=== PATIENT | female | born 1945 | race Caucasian/White ===

== ENCOUNTER 2016-05-16 10:44 | Emergency (ER) | payer OTHER, BC ==
[2016-05-16 10:57] VITALS: RESP 16; TEMP 97.7; O2SAT 96
[2016-05-16 12:29] VITALS: BP 142/89; PULSE 77
--- NOTE | 2016-05-16 12:37 | EDPHY ---
H & P Stated Complaint: UNABLE TO CARE FOR SELF Time Seen by Provider: 05/16/16 11:33 HPI/ROS: CHIEF COMPLAINT: Concerns over ability to care for self HISTORY OF PRESENT ILLNESS: 70-year-old female arrives via police on an M1 hold. Patient has a history of dementia, is cared for by her who is also in the emergency department for a transient episode of altered mental status and hypoglycemia. No reports of trauma or fall. Patient has no complaints of pain or discomfort. REVIEW OF SYSTEMS: A ten point review of systems was performed and is negative with the exception of the items mentioned in the HPI PAST MEDICAL & SURGICAL HISTORY: No pertinent medical or surgical history SOCIAL HISTORY:lives with her PHYSICAL EXAM (Prior to examination, patient consented to physical exam, hands were washed and my usual and customary physical exam procedures followed) 1) GENERAL: Well-developed, well-nourished, alert . Appears to be in no acute distress. 2) HEAD: Normocephalic, atraumatic 3) HEENT: Pupils equal, round, reactive to light bilaterally. Sclera anicteric. 4) NECK: Full range of motion, no meningeal signs. 5) LUNGS: Clear auscultation bilaterally, no wheezes, no rhonchi, no retractions. 6) HEART: Regular rate and rhythm, no murmur, no heave, no gallop. 7) ABDOMEN: No guarding, no rebound, no focal tenderness,, 8) MUSCULOSKELETAL: No peripheral edema or discoloration. 9) BACK: No CVA tenderness 10) SKIN: No rash, no petechiae. DIFFERENTIAL DIAGNOSIS: in no particular include but limited to dementia, encephalopathy, trauma - Personal History Current Tetanus/Diphtheria Vaccine: Yes Current Tetanus Diphtheria and Acellular Pertussis (TDAP): Yes Tetanus Vaccine Date: less than 10 years - Medical/Surgical History Hx Asthma: No Hx Chronic Respiratory Disease: No Hx Diabetes: No Hx Cardiac Disease: No Hx Renal Disease: No Hx Cirrhosis: No Hx Alcoholism: No Hx HIV/AIDS: No Hx Splenectomy or Spleen Trauma: No Other PMH: medical none. surgery appendectomy, tubal ligation. alzheimers - Social History Smoking Status: Never smoked Constitutional: Initial Vital Signs Temperature (C) 36.5 C 03/27/17 10:55 Heart Rate 85 05/16/16 10:55 Respiratory Rate 16 05/16/16 10:55 Blood Pressure 151/98 H 05/16/16 10:55 O2 Sat (%) 96 05/16/16 10:55 O2 Delivery Mode Room Air Allergies/Adverse Reactions: No Known Allergies Allergy (Unverified 05/16/16 10:57) Home Medications: Medication Instructions Recorded Aspirin [Aspirin 325 mg] 325 mg PO DAILY 06/29/10 Amoxicillin/Clavulanate Pot 875 mg PO BID #9 tab 01/01/16 [Augmentin 875 MG TAB (RX)] Donepezil HCl 01/01/16 Memantine HCl 01/01/16 Departure - Departure Disposition: Home, Routine, Self-Care Clinical Impression: Alzheimer's dementia Qualifiers: Alzheimer's disease onset: unspecified onset Dementia behavioral disturbance: without behavioral disturbance Qualified Code(s): G30.9 - Alzheimer's disease, unspecified Condition: Good Instructions: Dementia (ED) Referrals: Jose Troncoso MD [Medical Doctor] - 2-3 days, call for appt.
== END 2016-05-16 13:10 | disposition home or self-care (01) ==
LOC: EDUNIT#
DX: G30.9 Alzheimer's disease, unspecified (principal); Z79.82 Long term (current) use of aspirin

== ENCOUNTER 2017-06-08 17:07 | Inpatient (IN) | payer OTHER, BC ==
--- NOTE | 2017-06-08 17:34 | EDPHY ---
HPI/HX/ROS/PE/MDM Narrative: CHIEF COMPLAINT: Altered mental status, has dementia HISTORY OF PRESENT ILLNESS: The patient is a 71 y/o female with a history of dementia presenting with her daughter after her daughter noticed right eye drooping. On Monday, 5 days ago, she began to have intermittent vomiting. Per her daughter, the patient was also leaning towards her right side while walking and was more weak than normal while walking. Her daughter was concerned about the weakness so she decided to present to the emergency department. Denies history of UTI. Daughter denies that the patient has reported chest pain and no obvious shortness of breath witnessed. Patient has not had a cough or runny nose. No history of fever. REVIEW OF SYSTEMS: Unable to obtain due to patient's dementia. Daughter reports vomiting but denies fever. PAST MEDICAL HISTORY: Dementia SOCIAL HISTORY: Daughter at bedside, lives in [place] with her VITAL SIGNS Reviewed by me. GENERAL: Uncomfortable in bed, reports pain on the right side with any touching or movements. No deformities noted. Well-developed, well-nourished. HEENT: Atraumatic. Eyes: Slight ptosis on the right. PERRL, EOMI, no nystagmus. No icterus. No injection. Mouth: moist mucous membranes. No erythema or lesions. Neck: No meningitis. Nontender to palpation. No adenopathy. No meningismus. LUNGS: Clear to auscultation bilaterally, no wheezes, rhonchi or rales. CARDIAC: Regular rate and rhythm, no rubs, murmurs or gallops. ABDOMEN: Soft, nontender, nondistended, bowel sounds normal. BACK: Mild left CVA tenderness. EXTREMITIES: No trauma. No pedal edema. Range of motion is normal throughout. NEURO: Right eyelid with slight ptosis, mild asymmetry of the mouth the right corner of somewhat lower. Alert, oriented times 0. Cranial nerves appear grossly intact. Unable to assess strength secondary to the patient's confusion. SKIN: Warm and dry, no rash. PSYCHIATRIC: Normal mentation, no agitation. Portions of this note were transcribed by a pesticide use medical coordinator. I personally performed a history, physical exam, medical decision making, and confirmed accuracy of information the transcribed note. ED Course: The patient is a 71 y/o female with a history of dementia presenting with her daughter after her daughter noticed right eye drooping and general right-sided pain and weakness today. On exam the patient has diffuse right-sided pain without any visible trauma. She also has right eyelid and mild right corner of her mouth droopiness. She does have full ROM of her extremities. EKG, chest x- ray, head CT, and labs ordered. 1814: Spoke with radiologist, he reports that the patient's head CT is negative. 1845: 12-LEAD EKG: Please see the full report in [facility]. My interpretation: Normal sinus rhythm with a rate of 94 1855: Patient's nurse reports that the patient tries to not bear weight on her right leg. Right upper and lower extremity plain films ordered to evaluate for occult fracture. 1909: Patient's labs reveal elevated lipase. Liver function tests are largely unremarkable. Abdominopelvic CT ordered to evaluate for pancreatitis. 1947: I reviewed patient's extremity x-rays; there are no acute osseous findings. She will need to be admitted for pancreatitis. 2014: Spoke with Dr. Ann, radiologist, regarding patient's AP CT. There is a possible right pulmonary embolism and simple pancreatitis. D-dimer ordered. Dr. Ann recommends further evaluation for this potential right pulmonary embolism visualized on the CT scan performed with contrast. As the patient has just received IV contrast we will proceed with bilateral lower extremity ultrasounds. D-dimer also ordered. This is 7.9. 2035: Consulted with hospitalist service, Dr. Sanchez accepts admission of this patient for pancreatitis, vomiting, dehydration, altered mental status, and to further evaluate for potential venous thromboembolic disease. MDM: After the history was obtained and physical exam performed, the following differential for the patient's altered mental status and vomiting and weakness was considered included but was not limited to hypoglycemia, electrolyte disturbances, anemia, intracranial abnormalities, drug or alcohol intoxication, infection, stroke, or TIA. - Data Points Imaging Results: Imaging Impressions Chest X-Ray 06/08/17 17:38 Impression: 1. Shallow inspiration exaggerates lung markings. Bibasilar opacities, atelectasis versus pneumonia; clinical correlation recommended. 2. Peribronchial thickening suggests airways disease. 3. See above report for additional findings. Head CT 06/08/17 17:38 Impression: 1. No acute intracranial findings. If symptoms persist and clinical suspicion warrants, consider MRI. 2. Diffuse cerebral atrophy with periventricular and subcortical low attenuation consistent with chronic microvascular ischemic gliosis. Findings discussed with genet Wall for Kell Szymanski MD 06/08/2017 at 18: 14. Forearm X-Ray 06/08/17 18:56 Impression: Nothing acute identified. 2. Right Humerus, 2 views History: Pain, altered mental status. Dementia. Findings: No fracture or malalignment is identified. Mineralization is normal. Impression: Negative. Hip X-Ray 06/08/17 18:56 Impression: Negative 2. Right Knee, 2 views History: Pain Findings: There is mild hyperextension of the knee joint. There is a tiny amount of fluid in the suprapatellar knee joint. No fracture, arthritis or dislocation is identified. Mineralization is normal. Impression: Mild hyperextension. Otherwise negative. 3. Right Tibia-Fibula, 2 views History: Pain Findings: No fracture is identified. Mineralization is normal. Alignment is anatomic. Incidentally noted is a large plantar calcaneal spur. Impression: Nothing acute identified. Humerus X-Ray 06/08/17 18:56 Impression: Nothing acute identified. 2. Right Humerus, 2 views History: Pain, altered mental status. Dementia. Findings: No fracture or malalignment is identified. Mineralization is normal. Impression: Negative. Tibia/Fibula X-Ray 06/08/17 18:56 Impression: Negative 2. Right Knee, 2 views History: Pain Findings: There is mild hyperextension of the knee joint. There is a tiny amount of fluid in the suprapatellar knee joint. No fracture, arthritis or dislocation is identified. Mineralization is normal. Impression: Mild hyperextension. Otherwise negative. 3. Right Tibia-Fibula, 2 views History: Pain Findings: No fracture is identified. Mineralization is normal. Alignment is anatomic. Incidentally noted is a large plantar calcaneal spur. Impression: Nothing acute identified. Abdomen CT 06/08/17 19:10 Impression: 1.Suspicious for right pulmonary embolism. 2. Simple pancreatitis of the tail. Results called to Dr. Szymanski at 8:15 PM. General information for patients regarding this examination can be found at [email or web address]. If you have questions or comments about this report, please contact me at [phone] (hospital) or [phone] (cell). Imaging: Discussed imaging studies w/ house calls nurse Radiologist, I viewed and interpreted images myself Laboratory Results: Laboratory Results 06/08/17 18:13 06/08/17 18:13 06/08/17 06/08/17 06/08/17 18:15 18:13 18:13 WBC RBC Hgb Hct MCV MCH MCHC RDW Plt Count MPV Neut % (Auto) Lymph % (Auto) [place] % (Auto) Eos % (Auto) Baso % (Auto) Nucleat RBC Rel Count Absolute Neuts (auto) Absolute Lymphs (auto) Absolute Monos (auto) Absolute Eos (auto) Absolute Basos (auto) Absolute Nucleated RBC Immature Gran % Immature Gran # PT INR D-Dimer 7.90 ug/mLFEU H ug/mLFEU (0.00-0.50) Sodium 139 mEq/L mEq/L (135-145) Potassium 4.5 mEq/L mEq/L (3.5-5.2) Chloride 101 mEq/L mEq/L (97-110) Carbon Dioxide 25 mEq/l mEq/l (22-31) Anion Gap 13 mEq/L mEq/L (8-16) BUN 13 mg/dL mg/dL (7-23) Creatinine 0.8 mg/dL mg/dL (0.6-1.0) Estimated GFR > 60 Glucose 124 mg/dL H mg/dL (70-100) Calcium 9.0 mg/dL mg/dL (8.5-10.4) Total Bilirubin 0.4 mg/dL mg/dL (0.1-1.4) Conjugated Bilirubin 0.2 mg/dL mg/dL (0.0-0.5) Unconjugated Bilirubin 0.2 mg/dL mg/dL (0.0-1.1) AST 42 IU/L IU/L (14-46) ALT 34 IU/L IU/L (9-52) Alkaline Phosphatase 113 IU/L IU/L (38-126) Troponin I < 0.012 ng/mL ng/mL (0.000-0.034) Total Protein 7.8 g/dL g/dL (6.3-8.2) Albumin 4.1 g/dL g/dL (3.5-5.0) Lipase 592 IU/L H IU/L (23-300) Urine Color Urine Appearance Urine pH Ur Specific [place] Urine Protein Urine Ketones Urine Blood Urine Nitrate Urine Bilirubin Urine Urobilinogen Ur Leukocyte Esterase Urine RBC Urine WBC Ur Epithelial Cells Urine Mucus Urine Glucose 06/08/17 06/08/17 06/08/17 18:13 18:13 17:45 WBC 12.51 10^3/uL H 10^3/uL (3.80-9.50) RBC 4.42 10^6/uL 10^6/uL (4.18-5.33) Hgb 13.2 g/dL g/dL (12.6-16.3) Hct 39.4 % % (38.0-47.0) MCV 89.1 fL fL (81.5-99.8) MCH 29.9 pg pg (27.9-34.1) MCHC 33.5 g/dL g/dL (32.4-36.7) RDW 13.0 % % (11.5-15.2) Plt Count 261 10^3/uL 10^3/uL (150-400) MPV 10.0 fL fL (8.7-11.7) Neut % (Auto) 77.3 % H % (39.3-74.2) Lymph % (Auto) 10.3 % L % (15.0-45.0) [place] % (Auto) 9.4 % % (4.5-13.0) Eos % (Auto) 2.0 % % (0.6-7.6) Baso % (Auto) 0.5 % % (0.3-1.7) Nucleat RBC Rel Count 0.0 % % (0.0-0.2) Absolute Neuts (auto) 9.67 10^3/uL H 10^3/uL (1.70-6.50) Absolute Lymphs (auto) 1.29 10^3/uL 10^3/uL (1.00-3.00) Absolute Monos (auto) 1.18 10^3/uL H 10^3/uL (0.30-0.80) Absolute Eos (auto) 0.25 10^3/uL 10^3/uL (0.03-0.40) Absolute Basos (auto) 0.06 10^3/uL 10^3/uL (0.02-0.10) Absolute Nucleated RBC 0.00 10^3/uL 10^3/uL (0-0.01) Immature Gran % 0.5 % % (0.0-1.1) Immature Gran # 0.06 10^3/uL 10^3/uL (0.00-0.10) PT 14.1 SEC SEC (12.0-15.0) INR 1.07 (0.83-1.16) D-Dimer Sodium Potassium Chloride Carbon Dioxide Anion Gap BUN Creatinine Estimated GFR Glucose Calcium Total Bilirubin Conjugated Bilirubin Unconjugated Bilirubin AST ALT Alkaline Phosphatase Troponin I Total Protein Albumin Lipase Urine Color YELLOW Urine Appearance CLEAR Urine pH 5.0 (5.0-7.5) Ur Specific [place] 1.030 (1.002-1.030) Urine Protein 1+ H (NEGATIVE) Urine Ketones NEGATIVE (NEGATIVE) Urine Blood 1+ H (NEGATIVE) Urine Nitrate NEGATIVE (NEGATIVE) Urine Bilirubin NEGATIVE (NEGATIVE) Urine Urobilinogen 2.0 EU H EU (0.2-1.0) Ur Leukocyte Esterase NEGATIVE (NEGATIVE) Urine RBC 1-3 /hpf /hpf (0-3) Urine WBC 5-10 /hpf H /hpf (0-3) Ur Epithelial Cells TRACE /lpf /lpf (NONE-1+) Urine Mucus 3+ /lpf H /lpf (NONE-1+) Urine Glucose NEGATIVE (NEGATIVE) General Time Seen by Provider: 06/08/17 17:10 Initial Vital Signs: Initial Vital Signs Temperature (C) 37.1 C 06/08/17 17:07 Heart Rate 95 06/08/17 17:07 Respiratory Rate 16 06/08/17 17:07 Blood Pressure 131/73 H 06/08/17 17:07 O2 Sat (%) 91 L 06/08/17 17:07 O2 Delivery Mode Room Air Allergies/Adverse Reactions: No Known Allergies Allergy (Unverified 05/16/16 10:57) Home Medications: Medication Instructions Recorded Donepezil HCl 10 mg PO DAILY 06/08/17 Memantine HCl 10 mg PO BID 06/08/17 Departure - Departure Disposition: [facility] Inpatient Acute Clinical Impression: Confusion, possible venous thromboembolic disease Pancreatitis Qualifiers: Chronicity: acute Pancreatitis type: unspecified pancreatitis type Acute pancreatitis complication: unspecified Qualified Code(s): K85.90 - Acute pancreatitis without necrosis or infection, unspecified Condition: Fair Report Scribed for: Kell Szymanski Report Scribed by: Mae Figueredo Date of Report: 06/08/17 Time of Report: 18:00
[2017-06-08 18:19] LABS: PLATELET COUNT 261 10^3/uL (150-400)
[2017-06-08 18:27] LABS: INR 1.07 (0.83-1.16); PROTIME(PATIENT) 14.1 SEC (12.0-15.0)
--- NOTE | 2017-06-08 18:48 | CPEKG ---
Heart Rate: 94 RR Interval: 638 P-R Interval: 128 QRSD Interval: 82 QT Interval: 344 QTC Interval: 431 P [place]: 36 QRS [place]: 15 T Wave [place]: 43 EKG Severity - NORMAL ECG - EKG Impression: SINUS RHYTHM Electronically Signed By: Kell Szymanski 08-Jun-2017 21:38:10
[2017-06-08] MEDS ORDERED: IOPAMIDOL (ISOVUE-300) 100 ML BTL ONE (19:35)
[2017-06-08] MEDS ORDERED: ONDANSETRON 4 MG/2 ML VIAL IVP PRN (22:18)
[2017-06-08] MEDS ORDERED: NS 1,000 ML IV SCH (22:30)
[2017-06-08] MEDS ORDERED: ENOXAPARIN 60 MG/0.6 ML SYR SC SCH (23:00)
[2017-06-08] MEDS ORDERED: HEPARIN 10,000 UNIT/10 ML MDV (1,000 UNIT/ML) IVP ONE (23:09)
[2017-06-08] MEDS ORDERED: HEPARIN 10,000 UNIT/10 ML MDV (1,000 UNIT/ML) IVP PRN (23:09)
[2017-06-08] MEDS ORDERED: HEPARIN/DEXTROSE 500 ML IV SCH (23:15)
[2017-06-08 23:43] LABS: PLATELET COUNT 233 10^3/uL (150-400)
[2017-06-08 23:51] LABS: INR 1.09 (0.83-1.16); PROTIME(PATIENT) 14.3 SEC (12.0-15.0)
[2017-06-09] MEDS: ACETAMINOPHEN 325 MG TAB PO PRN ×2 (01:31→15:55)
[2017-06-09] MEDS ORDERED: NS 500 ML IV ONE (01:52)
[2017-06-09 03:04] LABS: PLATELET COUNT 245 10^3/uL (150-400)
--- NOTE | 2017-06-09 03:13 | PDGENHP ---
History and Physical - Chief Complaint Acute on chronic confusion, shortness, nausea - History of Present Illness Source- patient is able to answer a few review of system questions but overall is a poor historian due to her dementia and acute confusion. Patient's daughter is at bedside and provides the history. Case was discussed with accepting hospitalist and discussed with ER provider. HPI - this is a 71-year-old female with the past medical history significant for progressive dementia who is otherwise healthy presents emergency department today with her daughter with acute confusion from her baseline. Patient also with some complaints of nausea has had a nonproductive cough is overall appears to be acutely ill. Patient without any known recent illnesses. She was recently removed off of Haldol in the last several weeks 2/2 increased sedation and no significant improvement in mood or behavior. Daughter reports that in the past 1-2 weeks patient has been particularly less mobile in the more sedentary lying in bed quite a bed. She has noticed that her mother appears to be quite fatigued and has bilateral symmetric overall facial drooping without any slurred speech or focal deficits. Today patient was noted to be acutely confused from her baseline which patient is normally oriented to person and her daughter has been but not always to place. Additionally patient's caregiver was concerned that patient was having some unsteady gait. Patient had been leaning more towards the right secondary to complaints of right lower leg pain. Daughter also noticed that patient's right lower leg and calf appear to be slightly more prominent than the left. Patient denies any chest pain. Positive shortness of breath. History Information - Allergies/Home Medication List Allergies/Adverse Reactions: No Known Allergies Allergy (Unverified 05/16/16 10:57) Home Medications: Donepezil HCl 10 mg PO DAILY 06/08/17 [Last Taken 06/08/17] Memantine HCl 10 mg PO BID 06/08/17 [Last Taken 06/08/17 08:00] I have personally reviewed and updated: family history, medical history, social history, surgical history - Past Medical History Additional medical history: Dementia - Surgical History Additional surgical history: Cholecystectomy, appendectomy, hysterectomy. - Family History Additional family history: Mother and father due to CA at advanced age. - Social History Smoking Status: Never smoked Alcohol Use: None Drug Use: None Additional social history: Patient is and lives with her at home. She has 24 hr caregivers available in the home. Daughter is MD MARTINEZ in quite supportive of but travels for school [id number]. Cor status-full. Review of Systems Review of Systems: ROS: 10pt was reviewed & negative except for what was stated in HPI & below Constitutional: Reports: weakness (Generalized). Denies: chills, fever, recent illness EENMT: Denies: blurred vision, nose congestion, sore throat Cardiac: Denies: chest pain, edema, lightheadedness, palpitations, syncope Respiratory: Reports: cough (Nonproductive), shortness of breath (With exertion) Gastrointestinal: Reports: nausea. Denies: vomitting, abdominal pain, diarrhea Genitourinary: Denies: dysuria, hematuria Muscolosketal: Denies: joint pain, muscle pain Skin: Reports: no symptoms Neurological: Reports: weakness (Generalized). Denies: anxiety, depressed Hematologic/Lymphatic: Reports: no symptoms Physical Exam Physical Exam: Selected Entries 06/08/17 06/08/17 17:07 20:51 Blood Pressure Automatic Method Heart Rate 95 78 Respiratory 16 16 Rate O2 Sat (%) 91 L 88 L Temperature (C) 37.1 C 37.2 C Blood Pressure 131/73 H 94/74 L Mean Arterial 92 80 Pressure (MAP) Activity During At Rest Vital Signs O2 Delivery Room Air Room Air Mode Blood Pressure Left Source Upper Arm Temperature Oral Source Constitutional: no apparent distress, chronically ill appearing, other Eyes: PERRL Ears, Nose, Mouth, Throat: moist mucous membranes, No poor dentition Cardiovascular: regular rate and rhythym, no murmur, rub, or gallop, pulses symmetric bilaterally, No edema Peripheral Pulses: 1+: dorsalis-pedis (R), dorsalis-pedis (L) Respiratory: no respiratory distress, no rales or rhonchi, clear to auscultation , reduced air movement (Decreased inspiratory effort bibasilarly.) Gastrointestinal: normoactive bowel sounds, soft, non-tender abdomen, no palpable masses, No guarding, No distension Genitourinary: no bladder tenderness, No hendrickson in urethra Skin: warm, normal color, no rashes or abrasions Musculoskeletal: normal joint ROM, generalized weakness Neurologic: AAOx3, sensation intact bilaterally, weakness (Generalized), CN II- XII Intact, No facial droop Psychiatric: agitated (Patient intermittently agitated with nasal cannula and blood draw but redirectable.), poor insight, poor judgement, poor memory, No thought process linear Lab Data & Imaging Review 06/09/17 02:44 06/08/17 18:13 WBC 11.40 10^3/uL (3.80-9.50) H 06/09/17 02:44 RBC 3.82 10^6/uL (4.18-5.33) L 06/09/17 02:44 Hgb 11.5 g/dL (12.6-16.3) L 06/09/17 02:44 Hct 34.4 % (38.0-47.0) L 06/09/17 02:44 MCV 90.1 fL (81.5-99.8) 06/09/17 02:44 MCH 30.1 pg (27.9-34.1) 06/09/17 02:44 MCHC 33.4 g/dL (32.4-36.7) 06/09/17 02:44 RDW 13.0 % (11.5-15.2) 06/09/17 02:44 Plt Count 245 10^3/uL (150-400) 06/09/17 02:44 MPV 10.2 fL (8.7-11.7) 06/09/17 02:44 Neut % (Auto) 71.3 % (39.3-74.2) 06/09/17 02:44 Lymph % (Auto) 15.1 % (15.0-45.0) 06/09/17 02:44 [place] % (Auto) 9.6 % (4.5-13.0) 06/09/17 02:44 Eos % (Auto) 2.9 % (0.6-7.6) 06/09/17 02:44 Baso % (Auto) 0.5 % (0.3-1.7) 06/09/17 02:44 Nucleat RBC Rel Count 0.0 % (0.0-0.2) 06/09/17 02:44 Absolute Neuts (auto) 8.13 10^3/uL (1.70-6.50) H 06/09/17 02:44 Absolute Lymphs (auto) 1.72 10^3/uL (1.00-3.00) 06/09/17 02:44 Absolute Monos (auto) 1.09 10^3/uL (0.30-0.80) H 06/09/17 02:44 Absolute Eos (auto) 0.33 10^3/uL (0.03-0.40) 06/09/17 02:44 Absolute Basos (auto) 0.06 10^3/uL (0.02-0.10) 06/09/17 02:44 Absolute Nucleated RBC 0.00 10^3/uL (0-0.01) 06/09/17 02:44 Immature Gran % 0.6 % (0.0-1.1) 06/09/17 02:44 Immature Gran # 0.07 10^3/uL (0.00-0.10) 06/09/17 02:44 PT 14.3 SEC (12.0-15.0) 06/08/17 23:34 INR 1.09 (0.83-1.16) 06/08/17 23:34 APTT 31.5 SEC (23.0-38.0) 06/08/17 23:34 D-Dimer 7.90 ug/mLFEU (0.00-0.50) H 06/08/17 18:15 Sodium 139 mEq/L (135-145) 06/08/17 18:13 Potassium 4.5 mEq/L (3.5-5.2) 06/08/17 18:13 Chloride 101 mEq/L (97-110) 06/08/17 18:13 Carbon Dioxide 25 mEq/l (22-31) 06/08/17 18:13 Anion Gap 13 mEq/L (8-16) 06/08/17 18:13 BUN 13 mg/dL (7-23) 06/08/17 18:13 Creatinine 0.8 mg/dL (0.6-1.0) 06/08/17 18:13 Estimated GFR > 60 06/08/17 18:13 Glucose 124 mg/dL (70-100) H 06/08/17 18:13 Calcium 9.0 mg/dL (8.5-10.4) 06/08/17 18:13 Total Bilirubin 0.4 mg/dL (0.1-1.4) 06/08/17 18:13 Conjugated Bilirubin 0.2 mg/dL (0.0-0.5) 06/08/17 18:13 Unconjugated Bilirubin 0.2 mg/dL (0.0-1.1) 06/08/17 18:13 AST 42 IU/L (14-46) 18 18:13 ALT 34 IU/L (9-52) 06/08/17 18:13 Alkaline Phosphatase 113 IU/L (38-126) 06/08/17 18:13 Troponin I < 0.012 ng/mL (0.000-0.034) 06/08/17 18:13 Total Protein 7.8 g/dL (6.3-8.2) 06/08/17 18:13 Albumin 4.1 g/dL (3.5-5.0) 06/08/17 18:13 Lipase 592 IU/L (23-300) H 06/08/17 18:13 Urine Color YELLOW 06/08/17 17:45 Urine Appearance CLEAR 06/08/17 17:45 Urine pH 5.0 (5.0-7.5) 06/08/17 17:45 Ur Specific [place] 1.030 (1.002-1.030) 06/08/17 17:45 Urine Protein 1+ (NEGATIVE) H 06/08/17 17:45 Urine Ketones NEGATIVE (NEGATIVE) 06/08/17 17:45 Urine Blood 1+ (NEGATIVE) H 06/08/17 17:45 Urine Nitrate NEGATIVE (NEGATIVE) 06/08/17 17:45 Urine Bilirubin NEGATIVE (NEGATIVE) 06/08/17 17:45 Urine Urobilinogen 2.0 EU (0.2-1.0) H 06/08/17 17:45 Ur Leukocyte Esterase NEGATIVE (NEGATIVE) 06/08/17 17:45 Urine RBC 1-3 /hpf (0-3) 06/08/17 17:45 Urine WBC 5-10 /hpf (0-3) H 06/08/17 17:45 Ur Epithelial Cells TRACE /lpf (NONE-1+) 06/08/17 17:45 Urine Mucus 3+ /lpf (NONE-1+) H 06/08/17 17:45 Urine Glucose NEGATIVE (NEGATIVE) 06/08/17 17:45 Imaging Review: AP Upright and Lateral Chest Clinical Indications: Altered mental status in a 71-year-old female; comparison prior study August 05, 2013. Findings: Somewhat shallow is breast exaggerates lung markings. Peribronchial thickening is seen and there is elevation of the right hemidiaphragm. Basilar opacities bilaterally may be atelectasis with clinical correlation to exclude pneumonia. The heart and pulmonary vessels are normal. There are no pleural effusions and no pneumothorax. The bones are unremarkable for this age. Scoliosis and degenerative changes are seen in the spine. Impression: 1. Shallow inspiration exaggerates lung markings. Bibasilar opacities, atelectasis versus pneumonia ; clinical correlation recommended. 2. Peribronchial thickening suggests airways disease. 3. See above report for additional findings. CT Head Without Contrast History: ams. Comparison: CT head May 24, 2017. Technique: Axial unenhanced images were obtained from the vertex through the skull base. Dose reduction techniques were utilized. Findings: Vicente-white differentiation is preserved. There is stable moderate diffuse cerebral atrophy with scattered periventricular and subcortical low attenuation, suggesting chronic microvascular ischemic gliosis. No intracranial hemorrhage is identified. No extraaxial fluid collections are identified. There is no mass effect or evidence of infarct. Atherosclerotic calcification is present. The skull and skull base are unremarkable. Mild mucous membrane thickening is present in the paranasal sinuses. The mastoid air cells are clear. Impression: 1. No acute intracranial findings. If symptoms persist and clinical suspicion warrants, consider MRI. 2. Diffuse cerebral atrophy with periventricular and subcortical low attenuation consistent with chronic microvascular ischemic gliosis. Findings discussed with genet Wall for Kell Szymanski MD 06/08/2017 at 18: 14. 1. Right Forearm, Two Views History: Pain . Altered mental status. Dementia. Findings: No fracture or dislocation is identified. IV tubing overlies the dorsal forearm. 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 Impression: Nothing acute identified. 2. Right Humerus, 2 views History: Pain, altered mental status. Dementia. Findings: No fracture or malalignment is identified. Mineralization is normal. Impression: Negative. 1. Right Hip, 3 views Clinical Indications: Altered mental status, dementia, right-sided pain Findings: No fracture. Thickness of the joint is normal, without sclerosis or osteophytes. No evidence of avascular necrosis. The pelvic ring is intact. The SI joints and pubic symphysis look normal. There is no evidence for free fluid in the lower abdomen or pelvis. Impression: Negative 2. Right Knee, 2 views History: Pain Findings: There is mild hyperextension of the knee joint. There is a tiny amount of fluid in the suprapatellar knee joint. No fracture, arthritis or dislocation is identified. Mineralization is normal. Impression: Mild hyperextension. Otherwise negative. 3. Right Tibia-Fibula, 2 views History: Pain Findings: No fracture is identified. Mineralization is normal. Alignment is anatomic. Incidentally noted is a large plantar calcaneal spur. Impression: Nothing acute identified. 1. Right Hip, 3 views Clinical Indications: Altered mental status, dementia, right-sided pain Findings: No fracture. Thickness of the joint is normal, without sclerosis or osteophytes. No evidence of avascular necrosis. The pelvic ring is intact. The SI joints and pubic symphysis look normal. There is no evidence for free fluid in the lower abdomen or pelvis. Impression: Negative 2. Right Knee, 2 views History: Pain Findings: There is mild hyperextension of the knee joint. There is a tiny amount of fluid in the suprapatellar knee joint. No fracture, arthritis or dislocation is identified. Mineralization is normal. Impression: Mild hyperextension. Otherwise negative. 3. Right Tibia-Fibula, 2 views History: Pain Findings: No fracture is identified. Mineralization is normal. Alignment is anatomic. Incidentally noted is a large plantar calcaneal spur. Impression: Nothing acute identified. CT Abdomen and Pelvis With Contrast History: Abdominal pain, vomiting, elevated lipase Technique: 64 slice volumetric data set helical CT obtained through the abdomen and pelvis during bolus administration of 150 mL Isovue-300 nonionic contrast without complication. Images are reviewed on the computer workstation. Dose reduction techniques were utilized. Comparison: None Findings: There is a suggestion of right lower lobe pulmonary embolism, with adjacent atelectasis. Abdomen- There is breathing artifact. There is edema in the pancreatic tail without pseudocyst, ductal dilatation or abnormal calcification. The liver and spleen are normal in size and homogeneous. There is no biliary dilatation. The gallbladder, and kidneys look normal. There is an incidental right lower pole 3.6 cm right lower pole benign cyst. The adrenal glands and retroperitoneum look normal. There is no ascites or evidence for bowel obstruction. Pelvis: There is sigmoid diverticulosis without diverticulitis. Urinary bladder looks normal. There is no pelvic adenopathy or free fluid. There is no retroperitoneal or inguinal adenopathy. There is rectal and vaginal prolapse. Impression: 1.Suspicious for right pulmonary embolism. 2. Simple pancreatitis of the tail. Results called to Dr. Szymanski at 8:15 PM. General information for patients regarding this examination can be found at [email or web address]. If you have questions or comments about this report, please contact me at (hospital) or [phone] (cell). Ultrasound and Venous Duplex Doppler Study of Both the Right and Left Lower Extremities History: Possible pulmonary embolism seen on CT of the abdomen and pelvis, dementia Technique: High frequency transducer was used for imaging and Doppler study of the veins of the right and left lower extremities. Spectral Doppler and color Doppler were utilized, along with various maneuvers to assess flow in the veins. Findings: Right: The deep veins of the right lower extremity are diffusely thrombosed in the thigh knee and calf. There are absent expected Doppler waveforms within them. Left: The deep veins of the left lower extremity are normally compressible between the groin and the upper calf. They have normal Doppler wave forms within them. No venous thrombus is identified. Visualized and Interpreted Chest x-ray results: Yes Visualized and Interpreted imaging results: Yes EKG additional interpertation: NSR in the 90s. Mild ST depressions in the anterolateral leads. No acute ST elevations. QTC is 431. Assessment & Plan Assessment: Pleasant 71-year-old female with history of advanced dementia otherwise healthy who presents emergency department with her daughter for concerns of right-sided weakness and increased confusion from her baseline mentation. Patient has also been noted to be preference the right leg with complaints of pain. #PE and DVT - PE was noted on CT scan and patient received lived therapeutic Lovenox dosing instead of heparin drip prior to the Doppler studies resulting with a significant occlusive extensive DVT on the right lower extremity. This would certainly explain patient's complaint of discomfort and preference of the right lower extremity when she is walking that was observed by the patient's business systems lead. She has no focal deficits on exam. She has received therapeutic Lovenox but given the extensive nature of the DVT on the right on will plan to consult Interventional Radiology in the morning to see if patient may be a candidate for some sort of thrombolytics therapy. Discussed goals of care with patient's daughter and on asks how aggressive she desires for care to be. At this time it daughter desires patient to be a full code and to proceed with any required interventions that may be recommended. Patient leg remains marketing operations consultant sensation. #Acute encephalopathy - likely related to patient's acute illness in setting of hypoxia and PE. Patient's CT scan was negative for any evidence of of stroke. Her neurologic exam is negative for any evidence of a infarct as well. Patient did show similar improvement while I was at bedside with placement of oxygen by nasal cannula. However was quite difficult to convince the patient to wear the nasal cannula as did cause some irritation and discomfort. Attempted blow-by oxygen with a mask if patient will tolerate. #Hypoxia - secondary to patient's PE likely extensive in addition but no evidence of right heart strain at this time. Will plan to obtain echocardiogram in the morning. Supplemental oxygen as tolerated caps quite aggravated on with the nasal cannula so he is a little bit more settled and comfortable resting will plan to attempt some blow-by. Discussed with the patient this is also likely contributing to patient's significant fatigue could also be contributing to patient's encephalopathy in addition. #Hypotension - likely multifactorial including dehydration, of PE, less likely sepsis. Will plan to continue with IV fluid hydration and monitor closely. #Pancreatitis (Acute) - high patient's lipase is not significantly elevated it is less than the 3 times upper limit of normal however she does have radiographic evidence of pancreatitis on CT scan on which is likely contributing to her nausea that she has been experiencing. Patient currently without complaints of abdominal pain and will plan to repeat lipase in the morning. No evidence of choledocholithiasis or obstruction at this point will monitor LFTs in addition. Bilirubin is within normal limits. #Dementia - daughter reports patient overall is quite healthy and active. He is on not quite at her baseline but normally patient is oriented to person and her family members but not necessarily to place or time. #Leukocytosis-patient resists Stuart currently afebrile. She has extensive DVT in this is likely of stress response in addition she is hypoxic and with some mild hypotension. Patient will continue with IV fluid supplementation. She has not had any fevers up until this point. Will monitor closely and further evaluations for infectious process as appropriate. No antibiotics currently. Chest x-ray did show a little bit of atelectasis versus possible early pneumonia but I suspect this is likely atelectasis in setting of an acute PE. The patient had a contrast load and so patient will receive some IV fluid hydration. It will not change current management is explain to the daughter obtaining is secondary chest x-ray and exposure for on of contrast at risk of renal failure. She is amenable she understands that current treatment will consist of therapeutic Lovenox and in the morning further discussions with Interventional Radiology 0 patient may be a candidate for on any thrombolytics therapy on for the right DVT. #Hyperglycemia-mildly elevated. Patient will be NPO pending further discussion with the ER. Will plan to monitor if this continues to rise then may need to consider use of insulin sliding scale however this may cause more irritation for the patient than anything given her history of advanced dementia. FEN - IV fluid supplementation if patient will allow. Electrolyte monitoring and replacement if needed. Patient will be NPO at this time she has some mild pancreatitis at home but had episodes of nausea vomiting or complaints of abdominal pain. Will be NPO pending other discussion with IR morning. PPX - the P Lovenox in place. No SCDs secondary to DT. Bed alarm Cor status-is full code this time. Disposition - patient is admitted to in-patient S the medical floor given the extensive nature of her DVT on her pancreatitis and multiple other abnormal labs that will require further monitoring and treatment. Anticipate greater than 2 midnight stay.
--- NOTE | 2017-06-09 08:10 | PDMN ---
Medical Necessity Medical necessity: Pt meets IP criteria per MD; est los >2 mn for eval/tx of PE , DVT, acute encephalopathy, hypoxia, hypotension, mild pancreatitis & multiple other abnormal labs; admit for further workup/monitoring, IVFs, IV abx, IV Heparin, supportive care & possible IR intervention; hx dementia; per H&P & order 06/08/17
--- NOTE | 2017-06-09 11:02 | ECHO ---
[email or web address] [address] [address] Main: [phone] Fax: [email or web address] Echocardiogram Name: GRACE HART MR#: [id number] Study Date: 06/09/2017 Study Time: 08:12 AM Date of : 1945 Age: 71 year(s) Height: 162.6 cm (64 in.) Weight: 63.5 kg (140 lb.) BSA: 1.68 m2 Gender: Female Examination: Echo Indication: Image Quality: Contrast: Requested by: Sophia You BP: 120 mmHg/72 mmHg Heart Rate: Rhythm: Indication: Procedure Staff Reheater: Roseline Guzman RDCS Reading Physician: Requesting Provider: Measurements: Chambers Valvular Assessment AV/MV Valvular Assessment TV/PV Normal Normal Normal Name Value Range Name Value Range Name Value Range Ao Adina (2D): 3.1 cm (1.4 cm-2.6 AV meanP mmHg ( - ) TR Vmax: 2.69 mm/s ( - ) cm) ZANE (VTI): 2.5 cm ( - ) TR PGmax: 29 mmHg ( - ) IVSd (2D): 0.8 cm (0.6 cm-1.1 MV E Vmax: 0.56 m/s ( - ) syst. PAP: 34 mmHg ( - ) cm) MV A Vmax: 0.78 m/s ( - ) PV Vmax: 1.05 m/s (0.6 m/s-0.9 LVDd (2D): 4.5 cm (3.9 cm-5.3 MV E/A: 0.72 ( - ) m/s) cm) MV PHT: 0.067 s ( - ) PV PGmax: 4 mmHg ( - ) LVDs (2D): 2.8 cm (2.1 cm-4 cm) MVA (PHT): 3.3 s ( - ) LVPWd (2D): 0.8 cm ( - ) LVOTd 1.9 cm 1.9 cm mm LVEF (BP): 65 % (>=55 %) RVDd(2D): 3.3 cm (1.9 cm-3.8 cmmm) Continued Measurements: Chambers Valvular Assessment AV/MV Valvular Assessment TV/PV Name Value Name Value Name Value LADs: 3.2 cm MV DecTime: 239 m/s CVP (est.): 5 mmHg LADs Lon.8 cm MV E' Septal: 0.07 m/s LA Area: 15.0 cm2 MV E/E' Septal: 8.30 LA Volume: 43 ml MV E/E' Lateral: 7.10 LA Volume Index: 25.6 ml/m2 RA Area: 15.9 cm2 Additional Vessels Patient: GRACE HART Study Date: 06/09/2017 Page 1 of 2 08:12 AM Name Value Ao Ascendin.4 cm Inferior Vena Cava: 1.6 cm Findings: Left Ventricle: Normal size left ventricle. No LV hypertrophy. Normal global systolic LV function. EF is 65 %. No regional wall motion abnormality. Grade 1 diastolic dysfunction (abnormal relaxation). Right Ventricle: Normal size right ventricle. Normal RV function. Left Atrium: The left atrium is normal in size. Right Atrium: The right atrium is normal in size. Mitral Valve: The mitral valve is normal in appearance and function. Mild mitral valve regurgitation is present. No mitral stenosis is present. Aortic Valve: The aortic valve is normal in appearance and function. There is no aortic valve regurgitation. No aortic valve stenosis is present. Tricuspid Valve: The tricuspid valve is normal in appearance and function. Trivial tricuspid valve regurgitation. The pulmonary artery pressure is normal. Right ventricular systolic pressure measures 34mmHg. Pulmonic Valve: The pulmonic valve is normal in appearance and function. There is no pulmonic regurgitation seen. Aorta: The aorta is normal. Normal size aortic root measuring 3.1 cm. Normal size ascending aorta measuring 2.4 cm. IVC: The IVC is normal sized. Pericardium: No pericardial effusion. No pleural effusion. (No Signature Object) Patient: GRACE HART Study Date: 06/09/2017 Page 2 of 2 08:12 AM [id number]
[2017-06-09] MEDS: ENOXAPARIN 60 MG/0.6 ML SYR SC SCH ×2 (11:30→21:33)
[2017-06-09] MEDS ORDERED: IOPAMIDOL (ISOVUE 370) 100 ML BTL IV ONE (11:43)
[2017-06-09] MEDS ORDERED: OLANZapine DISINTEGR 5 MG TAB PO PRN (12:56)
[2017-06-09] MEDS ORDERED: NON-FORMULARY NEW DRUG (Donepezil Hcl [Donepezil Hcl] 10 MG) PO SCH (13:00)
[2017-06-09] MEDS ORDERED: OLANZapine 2.5 MG TAB PO PRN (13:05)
--- NOTE | 2017-06-09 13:19 | HOSPPROG ---
Hospitalist Progress Note Assessment/Plan: Acute DVT / PE - RLE DVT and distal right main pulmonary artery PE. No e/o right heart strain. Nl RV function on echo. Discussed with IR, Dr. Fields, who notes DVT is not proximal and does not feel intravascular lytics are indicated in this patient with advanced dementia. Suspect provoked, more sedentary of late. -Lovenox 1 mg/kg BID -can likely transition to eliquis at d/c -monitor on telemetry for now Pancreatitis - mild, lipase normalized this am. -trial clears -speech / swallow eval Possible PNA - RLL consolidation may represent pulmonary infarct. Fever overnight noted, clot can cause fever. -Cont Ceftriaxone/Azithromycin -send PCT, if negative consider stopping atbx and monitoring Dementia - at risk for acute delirium, mentation back to baseline this am per family -cont outpt meds -prn zyprexa for agitation -swallow eval as above Full code Dispo - cont inpt, PT/OT evals tomorrow once clots more stabilized Subjective: Pt resting comfortably, demented, but at baseline per family ( daughter, at bedside). Fever overnight. No cough. No CP or SOB, though pt is poor historian. Objective: Vital Signs Temp Pulse Resp BP Pulse Ox 37.1 C 87 19 150/96 H 93 06/09/17 12:00 06/09/17 12:00 06/09/17 12:00 06/09/17 12:00 06/09/17 12:00 Laboratory Results 06/09/17 02:44 06/09/17 02:44 06/08/17 06/09/17 06/10/17 05:59 05:59 05:59 Intake Total 150 Output Total 1 Balance 149 PT 14.3 SEC (12.0-15.0) 06/08/17 23:34 INR 1.09 (0.83-1.16) 06/08/17 23:34 - Physical Exam Constitutional: no apparent distress Eyes: PERRL Ears, Nose, Mouth, Throat: moist mucous membranes Cardiovascular: regular rate and rhythym Respiratory: no respiratory distress, reduced air movement, inspiratory crackles Gastrointestinal: normoactive bowel sounds, soft, non-tender abdomen Skin: warm Musculoskeletal: generalized weakness, other (RLE with mild erythema, not much edema) Neurologic: AAOx3 Psychiatric: poor judgement, poor memory ICD10 Worksheet Patient Problems: Problems Problem Status Onset Confusion Acute Pancreatitis Acute
--- NOTE | 2017-06-09 14:32 | ASMTCMCOM ---
CM Note CM Note Notes: Patient admitted with myriad problems: acute RLE DVT and pulmonary artery PE, mild pancreatitis and possible PNA. This is complicated by her severe dementia. Fortunately she has a supportive daughter, Janine ([phone]) who is MDPOA and 24/7 caregivers. Patient lives at home with her (who is also compromised) and the / support mentioned above. Caregiving provided by two agencies, [facility] and [facility]. She has RN support with [facility]. I anticipate she will discharge home back to these services. Case Management will send the appropriate paperwork to any agencies needing it. Date Signed: 06/09/2017 02:32 PM Electronically Signed By:Radha Varghese RN
[2017-06-09] MEDS: DONEPEZIL HCL 5 MG TAB PO SCH (15:54)
[2017-06-09] MEDS: AZITHROMYCIN IV 500 MG in NS 250 ML IV SCH (16:09)
[2017-06-09] MEDS ORDERED: NON-FORMULARY NEW DRUG (Memantine Hcl [Memantine Hcl] 10 MG) PO SCH (21:00)
[2017-06-09] MEDS: MEMANTINE HCL 5 MG TAB PO SCH (21:33)
[2017-06-10] MEDS: AZITHROMYCIN IV 500 MG in NS 250 ML IV SCH (10:04)
[2017-06-10] MEDS: MEMANTINE HCL 5 MG TAB PO SCH ×2 (10:04→20:22)
[2017-06-10] MEDS: ENOXAPARIN 60 MG/0.6 ML SYR SC SCH ×2 (10:04→20:22)
[2017-06-10] MEDS: DONEPEZIL HCL 5 MG TAB PO SCH (10:05)
--- NOTE | 2017-06-10 16:24 | HOSPPROG ---
Hospitalist Progress Note Assessment/Plan: Subjective Follow-up on deep vein thrombosis and pulmonary embolism as well as pancreatitis Patient's daughter was present at the bedside today and we had full discussion on her overall status and health issues. All questions were answered. The patient developed some nausea and vomiting after eating. Diet was adjusted to clears. I talked with nursing that will adjust this to advance as tolerated so that we can advance it if she tolerates clears but the current time she has had some difficulty. The family and I also discussed the procalcitonin test which they had been aware of. I discussed with him that this came back as normal. Considering this I had recommended that we hold antibiotic therapy and monitor her closely in the coming days. Her chest findings may be related to pulmonary infarction rather than actual infiltrate. Objective Vital signs as detailed below Physical exam General-patient appears comfortable no acute distress her family does much of the talking for her. Cardiac-regular rate and rhythm no murmurs appreciated Lungs-Clear to auscultation with normal respiratory effort Abdomen-soft nontender nondistended normal bowel sounds. No specific tenderness with palpation of the epigastrium -no Sullivan catheter in place Extremities-no significant pitting edema Labs as detailed below Assessment and plan 1. Deep vein thrombosis with pulmonary embolism-patient was found to have right lower extremity deep vein thrombosis as well as bilateral pulmonary emboli. Fortunately she has remained hemodynamically stable and seems to be doing reasonably well overall. Continue with current therapeutic dosing of Lovenox and will plan for transitioning to Eliquis as discussed previously at the time of discharge. 2. Pancreatitis-patient's lipase level was mildly elevated when she came into the hospital she was having some nausea and vomiting as well. We tried advancing her diet yesterday but she does not seem to have tolerated this well. Will continue with clears and she how she does over the coming 24-48 hours. I discussed with family that once she is able tolerate a diet and we could likely then transfer her out of the hospital back to home where she has good support and appears to be well taken care of. 3. Pneumonia-initial clinical concern for pneumonia but with normal procalcitonin this may in fact be related to pulmonary infarctions. I will hold antibiotic therapy and watch closely over the coming 24-48 hours. 4. Dementia continue current Aricept and Namenda 5. Disposition-planning for discharge to home once medically ready. Objective: Vital Signs Temp Pulse Resp BP Pulse Ox 37.2 C 104 H 17 148/89 H 92 06/10/17 15:15 06/10/17 15:15 06/10/17 15:15 06/10/17 15:15 06/10/17 15:15 Laboratory Results 06/10/17 04:23 06/09/17 02:44 06/09/17 06/10/17 06/11/17 05:59 05:59 05:59 Intake Total 150 Output Total 1 75 Balance 149 -75 PT 14.3 SEC (12.0-15.0) 06/08/17 23:34 INR 1.09 (0.83-1.16) 06/08/17 23:34 ICD10 Worksheet Patient Problems: Problems Problem Status Onset Confusion Acute Pancreatitis Acute
[2017-06-11 04:34] LABS: PLATELET COUNT 303 10^3/uL (150-400)
[2017-06-11] MEDS: DONEPEZIL HCL 5 MG TAB PO SCH (09:50)
[2017-06-11] MEDS: MEMANTINE HCL 5 MG TAB PO SCH ×2 (09:51→20:00)
[2017-06-11] MEDS: ENOXAPARIN 60 MG/0.6 ML SYR SC SCH ×2 (09:52→20:00)
--- NOTE | 2017-06-11 15:26 | HOSPPROG ---
Hospitalist Progress Note Assessment/Plan: Subjective Follow-up on deep vein thrombosis and pulmonary embolism as well as pancreatitis Patient's daughter was present at bedside today. She spent the night in the room with patient. Overnight no acute events. No additional nausea vomiting. We discussed that our plan was to see how she does today with advancing her diet. And continued work with therapy if available today. Yesterday really reviewed her home support and sounds very good. I think if she can tolerate a diet we could likely transition her back to her home to continue anticoagulation. The plan previously set into place was to continue with Lovenox while here in the hospital and to transition to Eliquis at the time of discharge. Objective Vitals as detailed below Physical exam General-patient appears comfortable no acute distress. Cardiac regular rate and rhythm no murmurs noted. Lungs-clear on auscultation with normal respiratory effort. Abdomen-soft nontender nondistended. No elicited tenderness with palpation at the epigastrium. no Sullivan catheter in place Extremities-no significant pitting edema noted. Labs as detailed below Assessment and plan 1. Deep vein thrombosis with pulmonary embolism-the patient was found to have a right lower extremity deep vein thrombosis as well as bilateral pulmonary emboli. Fortunately she has remained hemodynamically stable and seems to be doing reasonably well overall except for intestinal issues. Continue with therapeutic dosing of Lovenox. I will plan on transitioning to oral Eliquis at the time of discharge. 2. Pancreatitis-the patient's lipase level was mildly elevated at the time of admission. On CT imaging as well there was no visual evidence of pancreatitis too. Will try advancing her diet throughout the day today. I think when she can tolerate a diet we can then transition her back to home. 3. Pneumonia-I think less likely in light of a normal procalcitonin value. I think infiltrates noted may actually be pulmonary infarctions. Antibiotics were stopped yesterday and monitor over the coming 24-48 hours. 4. Dementia-diagnosis relatively early in her early 60s. Continue with current Aricept and Namenda. 5. Disposition-planning for discharge home tomorrow if she can tolerate a diet. Objective: Vital Signs Temp Pulse Resp BP Pulse Ox 36.6 C 86 16 112/76 89 L 06/11/17 11:32 06/11/17 11:32 06/11/17 11:32 06/11/17 11:32 06/11/17 11:32 Laboratory Results 06/11/17 04:15 06/11/17 04:15 06/10/17 06/11/17 06/12/17 05:59 05:59 05:59 Intake Total 540 Output Total 75 450 1 Balance -75 90 -1 PT 14.3 SEC (12.0-15.0) 06/08/17 23:34 INR 1.09 (0.83-1.16) 06/08/17 23:34 ICD10 Worksheet Patient Problems: Problems Problem Status Onset Confusion Acute Pancreatitis Acute
[2017-06-12 04:52] LABS: PLATELET COUNT 325 10^3/uL (150-400)
[2017-06-12 08:26] VITALS: BP 107/67
[2017-06-12] MEDS: DONEPEZIL HCL 5 MG TAB PO SCH (08:56)
[2017-06-12] MEDS: MEMANTINE HCL 5 MG TAB PO SCH (08:57)
[2017-06-12] MEDS: ENOXAPARIN 60 MG/0.6 ML SYR SC SCH (08:58)
--- NOTE | 2017-06-12 09:11 | PDIAF ---
- Diagnosis Diagnosis: Deep Vein Thrombosis with Pulmonary Embolism Code Status: Full Code - Medication Management Discharge Medications: Medications to Continue on Transfer Donepezil HCl 10 mg PO DAILY 06/08/17 [Last Taken 06/08/17] Memantine HCl 10 mg PO BID 06/08/17 [Last Taken 06/08/17 08:00] Apixaban [Eliquis] 5 mg PO BID #70 tab 06/12/17 [Last Taken Unknown] Discharge Medications: Refer to the Discharge Home Medication list for PRN reason. - Orders Services needed: Physical Therapy Diet Recommendation: no restrictions on diet Diet Texture: Regular Texture Diet, Thin Liquids, Meds Whole w/Liquids Sullivan: Not applicable - Follow Up Care Current Providers and Referrals: Jose Troncoso MD [Primary Care Provider] -
--- NOTE | 2017-06-12 10:01 | ASMTLACE ---
LACE Length of stay for Answers: 4-6 days current admission Acuity / Level of Answers: Yes Care: Did the patient have an inpatient admission? Comorbidities - select Answers: Dementia all that apply # of Emergency department Answers: 1-2 visits in the last 6 months Score: 11 Date Signed: 06/12/2017 10:00 AM Electronically Signed By:Latisha Swartz RN
--- NOTE | 2017-06-12 10:01 | ASMTCMCOM ---
CM Note CM Note Notes: Chart reviewed. Discussed with MD. Ready for dc to home with C and 24 hour care. Daughter in room and will transport patient. Orders to [facility] and spoke to intake who can accommodate patient. Call to other services providers to notify them of patients return home. CM available should other needs arise. Plan: [facility] Date Signed: 06/12/2017 10:00 AM Electronically Signed By:Latisha Swartz RN
--- NOTE | 2017-06-12 10:13 | GDS ---
[f rep st] DISCHARGE SUMMARY DISCHARGE DIAGNOSES: 1. Deep vein thrombosis with pulmonary embolism. 2. Pancreatitis, mild. HISTORY OF PRESENT ILLNESS: The patient is a pleasant 71-year-old female with a past medical history of dementia, who presented to the [facility] Emergency Room on 06/08/2017, with comp laints of shortness of breath, increased confusion and nausea. Her evaluation in the emergency room included a CT angiography of the chest which was notable for extensive pulmonary emboli in the distal main right pulmonary artery with associated small right pleural effusion. An ultrasound of her lowe r extremities revealed an extensive right leg deep vein thrombosis. The patient's case was discussed with interventional radiology. Thrombolytic therapy was not felt to be indicated and she was starte d on anticoagulation and actually did quite well. She remained stable throughout her hospitalization , was not needing any supplemental oxygen. Her CT imaging was also notable for pancreatitis at the t ail of the pancreas. Her lipase level as well was mildly elevated at 592. She was also having nause a with intermittent emesis. Her lipase level was within normal limits on the 2nd day of the hospital ization, and she was able to gradually escalate her diet back to a regular diet. She has not had any emesis in the past 24 hours. HOSPITAL COURSE BY PROBLEM: 1. DVT with pulmonary embolism. I would consider the thrombosis provoked as her daughter describes significant immobility at home. I think with her advancing Alzheimer's dementia, she has had a tende ncy to sleep more throughout the daytime. She has been on Lovenox during the hospitalization and the plan is to discharge her to continue with Eliquis. I have prescribed a 1 month supply and recommend ed a followup visit with Dr. Troncoso within the month to review. 2. Pancreatitis. Uncertain trigger, but it clinically resolve. She has not had any prior episodes of pancreatitis in the past. I did discuss with her daughter that we would want to monitor for this to make sure it does not become recurrent. 3. Pneumonia. There was some concern about possible pneumonia on her imaging as well. A procalcito gaviota level was checked and this was normal, so antibiotic therapy was stopped. In the days since stop ping antibiotic therapy, she has not had any fever and her leukocytosis has resolved. 4. Dementia. Patient was continued on Namenda and Aricept. DISPOSITION: Patient appears stable for discharge home today. We will write a prescription for home physical therapy. Otherwise, she has good services already in place for assistance at home where danica stratton lives with her . NOTABLE STUDIES: CT and ultrasound as detailed in the HPI. Labs on the day of discharge show a jaime stratton blood cell count of 9, hemoglobin 10.6, platelets of 325. Sodium 143, potassium 3.9, chloride 107, bicarb 25, BUN 8, creatinine 0.6, glucose of 102, AST 26, ALT 38, alkaline phosphatase 124, bilirubi n is 0.2. Procalcitonin value 0.09. DISCHARGE MEDICATIONS: 1. Apixaban 5 mg twice a day. 2. Aricept 10 mg daily. 3. Namenda 10 mg twice a day. DISCHARGE INSTRUCTIONS: I recommend a followup visit with Dr. Troncoso in 1-2 weeks' time for reasse ssment and discussion on ongoing anticoagulation. 40 minutes of time dedicated to discharge efforts. /[id number]/MODL
[2017-06-12] MEDS: ACETAMINOPHEN 325 MG TAB PO PRN (10:36)
--- NOTE | 2017-06-12 14:26 | ASDISCHSUM ---
Discharge Information Plan Status:Home with Home Health Medically Cleared to Leave:06/12/2017 Discharge Date:06/12/2017 12:42 PM D/C Disposition:Home Health Service [facility] D/C Disposition:Home, Routine, Self-Care Projected Discharge Date:06/12/2017 11:00 AM Transportation at D/C:Family [facility] Delay Reason: Follow-Up Date:06/12/2017 11:00 AM Discharge Slot: Final Diagnosis: Placement Information Referral Type:*Home Health Care Services Referral ID:[id number] Provider Name:[facility] Address 1:[address] [address] Address 2: City:[place] Selection Factors: State:[place] Patient Contact Information Contact Name:ELSA Relationship: Address:[address] Work Phone: City:[place] Alternate Phone: State/Zip Code:[place] [address] Email: Financial Information Financial Class:Medicare Primary Plan Desc:MEDICARE INPATIENT Primary Plan Number:[id number] Secondary Plan Desc:[employer] [facility][NOTE 3] Secondary Plan Number:[id number] Assessment Information LACE LACE Length of stay for Answers: 4-6 days current admission Acuity / Level of Answers: Yes Care: Did the patient have an inpatient admission? Comorbidities - select Answers: Dementia all that apply # of Emergency department Answers: 1-2 visits in the last 6 months Score: 11 Date Signed: 06/12/2017 10:00 AM Electronically Signed By:Latisha Swartz RN [facility] CM Progress Note CM Note CM Note Notes: Patient admitted with myriad problems: acute RLE DVT and pulmonary artery PE, mild pancreatitis and possible PNA. This is complicated by her severe dementia. Fortunately she has a supportive daughter, Janine ([phone]) who is MDPOA and 12/09 caregivers. Patient lives at home with her (who is also compromised) and the 12/09 support mentioned above. Caregiving provided by two agencies, [facility] and [facility]. She has RN support with [facility]. I anticipate she will discharge home back to these services. Case Management will send the appropriate paperwork to any agencies needing it. Date Signed: 06/09/2017 02:32 PM Electronically Signed By:Radha Varghese RN [facility] CM Progress Note CM Note CM Note Notes: Chart reviewed. Discussed with MD. Ready for dc to home with [facility] and 24 hour care. Daughter in room and will transport patient. Orders to [facility] and spoke to intake who can accommodate patient. Call to other services providers to notify them of patients return home. CM available should other needs arise. Plan: [facility] Date Signed: 06/12/2017 10:00 AM Electronically Signed By:Latisha Swartz RN Intervention Information Intervention Type:*IM-Signed Date of Service:06/12/2017 09:39 AM Patient Type:Inpatient Staff Member:Gloria Ramires Hours: Discipline: Severity: Comment:
[2017-06-12] MEDS ORDERED: APIXABAN 5 MG TAB PO SCH (21:00)
[2017-06-16] MEDS ORDERED: APIXABAN 5 MG TAB PO SCH (09:00)
== END 2017-06-12 12:42 | disposition home or self-care (01) | DRG 175 ==
LOC: EDUNIT# → OBSVTOIN 19:50 → F3N 20:40
PROVIDERS: ADMIT Family Medicine; ATTEND Family Medicine
DX: I26.99 Other pulmonary embolism without acute cor pulmonale (principal); I82.4Z1 Acute embolism and thrombosis of unspecified deep veins of right distal lower extremity; K85.90 Acute pancreatitis without necrosis or infection, unspecified; F03.90 Unspecified dementia, unspecified severity, without behavioral disturbance, psychotic disturbance, mood disturbance, and anxiety
CPT/HCPCS: 85520-90; 92610-GN; 97116-GP; 97161-GP; 97166-GO; 97530-GO; 97530-GP; G8978-GP-CJ; G8979-GP-CI; G8987-GO-CL; G8988-GO-CJ; G8996-GN-CH; G8997-GN-CH; J0456; J0696; J1644; J1650; Q9967

== ENCOUNTER 2017-08-23 16:07 | Emergency (ER) | payer OTHER, BC ==
--- NOTE | 2017-08-23 16:16 | EDPHY ---
H & P Stated Complaint: Swelling/redness RLE; concern recurrence DVT Time Seen by Provider: 08/23/17 16:16 - Personal History Current Tetanus Diphtheria and Acellular Pertussis (TDAP): Yes Tetanus Vaccine Date: less than 10 years - Medical/Surgical History Hx Asthma: No Hx Chronic Respiratory Disease: No Hx Diabetes: No Hx Cardiac Disease: No Hx Renal Disease: No Hx Cirrhosis: No Hx Alcoholism: No Hx HIV/AIDS: No Hx Splenectomy or Spleen Trauma: No Other PMH: appendectomy, tubal ligation. alzheimers - Social History Smoking Status: Never smoked Constitutional: Initial Vital Signs Temperature (C) 36.8 C 08/23/17 16:11 Heart Rate 84 08/23/17 16:11 Respiratory Rate 18 08/23/17 16:11 Blood Pressure 142/86 H 08/23/17 16:11 O2 Sat (%) 95 08/23/17 16:11 O2 Delivery Mode Room Air Allergies/Adverse Reactions: No Known Allergies Allergy (Verified 08/23/17 16:10) Home Medications: Medication Instructions Recorded Donepezil HCl 10 mg PO DAILY 06/08/17 Memantine HCl 10 mg PO BID 06/08/17 Apixaban [Eliquis] 5 mg PO BID #70 tab 06/12/17 Cephalexin [Keflex (RX)] 500 mg PO TID #30 cap 08/23/17 Donepezil HCl [Aricept] 5 mg PO 08/23/17 traZODone [traZODONE 50MG (*)] 50 mg PO 08/23/17 Medical Decision Making ED Course/Re-evaluation: CHIEF COMPLAINT: Right lower leg swelling HISTORY OF PRESENT ILLNESS: The patient is an anticoagulated (Eliquis) 71 y/o female with a history of Alzheimer and a DVT (May 2016) complaining of right lower leg swelling. The patient's daughter, her facing baster jumpbasting, was out of town for 12 days, and she is unsure if the patient's medications were given properly. The daughter returned home today and noticed the right lower leg swelling. Prior to arriving to the emergency department the patient was given 75 mg PO Trazodone, as she was agitated. I am unable to obtain any further history secondary to the patient's severe Alzheimer's disease. REVIEW OF SYSTEMS: Unable to obtain secondary to patient's Alzheimer's disease. PHYSICAL EXAM: HR, BP, O2 Sat, RR. Temp noted General Appearance: Alert, well hydrated, appropriate, and non-toxic appearing. Head: Atraumatic without scalp tenderness or obvious injury Eyes: Pupils equal, round, reactive to light and accommodation, EOMI, no trauma , no injection. Ears: Clear bilaterally, no perforation, normal landmarks Nose: Atraumatic, no rhinorrhea, clear. Throat: There is no erythema or exudates, no lesions, normal tonsils, mucus membranes moist. Neck: Supple, nontender, no lymphadenopathy. Respiratory: No retractions, no distress, no wheezes, and no accessory muscle use. Lungs are clear to auscultation bilaterally. Cardiovascular: Regular rate and rhythm, no murmurs, rubs, or gallops. Bilateral carotid, radial, dorsalis pedis, and posterior tibial pulses intact. Good capillary refill all extremities. Gastrointestinal: Abdomen is soft, nontender, non-distended, no masses, no rebound, no guarding, no peritoneal signs. Musculoskeletal: Right lower extremity swelling and induration. Normal active ROM of all extremities. Neurological: Alert, appropriate, and interactive. The patient has normal DTRs and non-focal cranial nerves, motor, sensory, and cerebellar exam. Skin: No rashes, good turgor, no nodules on palpation. Past medical history: Alzheimer's disease, DVT Past surgical history: Appendectomy, tubal ligation Family history: Denies Social history: Daughter at bedside, lives in [place], retired DIAGNOSTICS/PROCEDURES/CRITICAL CARE TIME: Right lower extremity US: No acute findings DIFFERENTIAL DIAGNOSIS: The differential diagnosis for the patient's leg swelling included but was not limited to cellulitis, hypoalbuminemia, congestive heart failure, cor pulmonale , venous stasis, trauma, and DVT. MEDICAL DECISION MAKING: The patient is an anticoagulated (Eliquis) 71 y/o female with a history of Alzheimer and a DVT (May 2016) presenting with right lower leg swelling. It is unknown if the patient was taking Eliquis as prescribed for the last 12 days. On exam she has right lower extremity swelling and induration. Right lower extremity US ordered. 1635: Patient is agitated; 2mg IM Ativan administered. 1723: Patient is still agitated; 10mg IM Zyprexa administered. 1738: Patient is still agitated and will not let ultrasound preform the study. 1846: Patient is still agitated; 2mg PO Ativan administered. 2019: Reassessed patient, the redness and swelling of her right lower leg is consistent with cellulitis. I have prescribed her Keflex for this cellulitis and advised her to follow up with her PCP. Reassessed patient and discussed imaging findings. I have advised her to follow up with her primary care provider. Return precautions provided; patient is comfortable with this plan. - Data Points Medications Given: Discontinued Medications Lorazepam (Ativan Injection) 2 mg IM EDNOW ONE Stop: 08/23/17 16:41 Last Admin: 08/23/17 16:41 Dose: 2 mg Lorazepam (Ativan) 2 mg PO EDNOW ONE Stop: 08/23/17 18:47 Last Admin: 08/23/17 18:47 Dose: 2 mg Olanzapine (Zyprexa Zydis) 10 mg PO EDNOW ONE Stop: 08/23/17 17:22 Last Admin: 08/23/17 17:23 Dose: 10 mg Departure - Departure Disposition: Home, Routine, Self-Care Clinical Impression: Cellulitis Qualifiers: Site of cellulitis: extremity Site of cellulitis of extremity: lower extremity Laterality: right Qualified Code(s): L03.115 - Cellulitis of right lower limb Condition: Good Instructions: Cellulitis (ED) Additional Instructions: 1. Take Keflex as prescribed. 2. Follow up with your primary care provider in 72 hours. 3. Return to the Emergency Department for fever, redness, discharge from wound, increasing pain or other worsening of condition. Referrals: Jose Troncoso MD [Primary Care Provider] - As per Instructions Prescriptions: Cephalexin [Keflex (RX)] 500 mg PO TID #30 cap Report Scribed for: Cuate Watson Report Scribed by: Mae Figueredo Date of Report: 08/23/17 Time of Report: 16:17
[2017-08-23] MEDS ORDERED: LORazepam 2 MG/ML INJ ONE (16:35)
[2017-08-23] MEDS ORDERED: LORazepam 2 MG/ML INJ IM ONE (16:40)
[2017-08-23] MEDS ORDERED: OLANZapine DISINTEGR 10 MG TAB PO ONE (17:21)
[2017-08-23] MEDS ORDERED: OLANZapine DISINTEGR 10 MG TAB ONE (17:21)
[2017-08-23] MEDS ORDERED: LORazepam 1 MG TAB ONE (18:42)
[2017-08-23] MEDS ORDERED: LORazepam 1 MG TAB PO ONE (18:46)
[2017-08-23] MEDS ORDERED: CEPHALEXIN 500 MG CAP PO ONE (20:16)
[2017-08-23 21:25] VITALS: BP 144/91
== END 2017-08-23 21:26 | disposition home or self-care (01) ==
DX: L03.115 Cellulitis of right lower limb (principal); G30.9 Alzheimer's disease, unspecified
CPT/HCPCS: 93971; 96372; 99285; J2060